=== PATIENT | female | born 1990 | race Caucasian/White ===

== ENCOUNTER → 2018-10-29 | Outpatient (CLI) | payer BC | END | disposition home or self-care (01) | LOC: CFH 07:22 | PROVIDERS: ATTEND Obstetrics & Gynecology | DX: R29.818 Other symptoms and signs involving the nervous system (principal); Z86.73 Personal history of transient ischemic attack (TIA), and cerebral infarction without residual deficits | CPT/HCPCS: 70551 ==

== ENCOUNTER 2019-01-17 09:27 | Outpatient (CLI) | payer BC ==
[~2019-01-17] VITALS: Ht 160 cm; Wt 83.6 kg
[2019-01-17 09:55] VITALS: BP 115/75
[2019-01-17 10:21] LABS: BASOPHILS # (AUTO) 0.04 x10^3/uL (0-0.1); BASOPHILS % (AUTO) 0 % (0-1); EOSINOPHILS # (AUTO) 0.19 x10^3/uL (0-0.4); EOSINOPHILS % (AUTO) 2 % (1-7); LYMPHOCYTES # (AUTO) 2.14 x10^3/uL (1-3.4); LYMPHOCYTES % (AUTO) 19 % (22-44); MD NO; MEAN CORPUSCULAR HGB CONC 32.9 g/dL (32.4-35.8); MEAN CORPUSCULAR VOLUME 94.2 fL (80-100); MEAN PLATELET VOLUME 7.1 fL (7.4-10.4); MONOCYTES # (AUTO) 1.04 x10^3/uL (0.2-0.8); MONOCYTES % (AUTO) 9 % (2-9); NEUTROPHILS # (AUTO) 7.93 x10^3/uL (1.8-6.8); NEUTROPHILS % (AUTO) 70 % (42-75); PLATELET COUNT 356 x10^3/uL (130-400); RED BLOOD COUNT 4.07 x10^6/uL (3.82-5.3)
[2019-01-17 10:31] LABS: MICROSCOPIC NOT IND
[2019-01-17 10:34] LABS: ALANINE AMINOTRANSFERASE 19 U/L (12-78); ALBUMIN 2.6 g/dL (3.4-5.0); ANION GAP 8 mmol/L (5-15); CALCIUM 8.8 mg/dL (8.5-10.1); CHLORIDE 108 mmol/L (98-107); CREATININE 0.49 mg/dL (0.55-1.02)
[2019-01-17 10:37] LABS: ALKALINE PHOSPHATASE 169 U/L (45-117); BILIRUBIN,TOTAL 0.7 mg/dL (0.2-1.0); TOTAL PROTEIN 6.7 g/dL (6.4-8.2)
[2019-01-17] MEDS ORDERED: NPH,100V SQ-INSULIN (10:46)
[2019-01-17] MEDS ORDERED: PREN-3 PO (10:47)
[2019-01-17 10:56] LABS: CREATININE,URINE RANDOM 25.2 mg/dL
== END 2019-01-17 11:50 | disposition home or self-care (01) ==
LOC: LDOP 09:27
PROVIDERS: ATTEND Obstetrics & Gynecology
DX: Z34.83 Encounter for supervision of other normal pregnancy, third trimester (principal); Z3A.37 37 weeks gestation of pregnancy
CPT/HCPCS: 36415; 59025; 76819; 80053; 81003; 82570; 84156; 84550; 85025; 99211; G0463

== ENCOUNTER 2019-01-20 16:01 | Outpatient (CLI) | payer BC ==
[~2019-01-20] VITALS: Ht 160 cm; Wt 84.0 kg
[~2019-01-20 16:01] MED LIST: NPH,100V SQ-INSULIN; PREN-3 PO
== END 2019-01-20 17:05 | disposition home or self-care (01) ==
LOC: LDOP 16:01
PROVIDERS: ATTEND Obstetrics & Gynecology
DX: Z3A.42 42 weeks gestation of pregnancy (principal)
CPT/HCPCS: 59025; 99211; G0463

== ENCOUNTER 2019-01-25 11:29 | Inpatient (IN) | payer BC ==
[~2019-01-25] VITALS: Ht 160 cm; Wt 84.0 kg
[2019-01-25] MEDS ORDERED: ONDANSETRON 2MG/ML, 2ML IVPush PRN (11:30)
[2019-01-25] MEDS ORDERED: OXYTOCIN 30U/ 0.9% NaCL 500ML 500 ML IV ONE (11:30)
[2019-01-25] MEDS ORDERED: FENTANYL PF 100 MCG/2ML IV PRN (11:30)
[2019-01-25] MEDS ORDERED: PENICILLIN GK 5,000,000 UNITS in DEXTROSE 5% 100 ML IVPB ONE (11:30)
[2019-01-25] MEDS ORDERED: CALCIUM CARBONATE 500 MG TAB.CHEW PO PRN (11:30)
[2019-01-25] MEDS ORDERED: TERBUTALINE 1 MG/ML, 1ML IVPush PRN (11:30)
[2019-01-25] MEDS ORDERED: OXYTOCIN 30U/ 0.9% NaCL 500ML 500 ML IV PRN (11:30)
[2019-01-25] MEDS ORDERED: OXYTOCIN 30U/ 0.9% NaCL 500ML 500 ML ONE (11:37)
[2019-01-25] MEDS ORDERED: NEWBORN KIT ONE (11:37)
[2019-01-25] MEDS ORDERED: MISOPROSTOL 200 MCG TABLET ONE (11:37)
[2019-01-25] MEDS ORDERED: LIDOCAINE 1%, 20ML ONE (11:37)
[2019-01-25] MEDS: LACTATED RINGERS 1,000 ML IV SCH (11:42)
[2019-01-25] MEDS ORDERED: MISOPROSTOL 25 MCG TABLET ONE ×2 (11:45→16:31)
[2019-01-25 11:54] LABS: BASOPHILS # (AUTO) 0.03 x10^3/uL (0-0.1); BASOPHILS % (AUTO) 0 % (0-1); EOSINOPHILS # (AUTO) 0.21 x10^3/uL (0-0.4); EOSINOPHILS % (AUTO) 2 % (1-7); LYMPHOCYTES % (AUTO) 18 % (22-44); MD NO; MEAN CORPUSCULAR HEMOGLOBIN 30.7 pg (27.0-34.8); MEAN CORPUSCULAR HGB CONC 33.3 g/dL (32.4-35.8); MEAN CORPUSCULAR VOLUME 92.2 fL (80-100); MEAN PLATELET VOLUME 7.1 fL (7.4-10.4); MONOCYTES # (AUTO) 0.91 x10^3/uL (0.2-0.8); MONOCYTES % (AUTO) 7 % (2-9); NEUTROPHILS # (AUTO) 8.92 x10^3/uL (1.8-6.8); NEUTROPHILS % (AUTO) 73 % (42-75); PLATELET COUNT 356 x10^3/uL (130-400); RED BLOOD COUNT 4.22 x10^6/uL (3.82-5.3)
[2019-01-25] MEDS: MISOPROSTOL 25 MCG TABLET VG PRN ×2 (12:12→16:53)
[2019-01-25] MEDS ORDERED: FENTANYL/BUPIV./NS/PF 250 ML EPIDCONT SCH (13:51)
[2019-01-25] MEDS ORDERED: LACTATED RINGERS 1,000 ML IVBOLUS PRN (14:00)
[2019-01-25] MEDS ORDERED: FENTANYL PF 500 MCG, BUPIVACAINE/PF 0.5%, 30ML 62.5 ML in SODIUM CHLORIDE 0.9% 177.5 ML EPIDCONT SCH (14:00)
[2019-01-25] MEDS ORDERED: EPHEDRINE 50 MG/ML, 1ML IVPush PRN (14:00)
[2019-01-25] MEDS: PENICILLIN GK 2,500,000 UNITS in DEXTROSE 5% 100 ML IVPB SCH ×2 (16:03→19:53)
[2019-01-25] MEDS: D5%-LACTATED RINGERS 1,000 ML IV SCH (19:40)
[2019-01-25] MEDS ORDERED: FENTANYL PF 100 MCG/2ML ONE (23:38)
[2019-01-25] MEDS: FENTANYL PF 100 MCG/2ML IVPush PRN (23:43)
[2019-01-26] MEDS ORDERED: FENTANYL PF 100 MCG/2ML ONE (01:15)
[2019-01-26] MEDS: FENTANYL PF 100 MCG/2ML IVPush PRN (01:19)
[2019-01-26] MEDS: LACTATED RINGERS 1,000 ML IV SCH ×11 (02:38→19:40)
[2019-01-26] MEDS ORDERED: FENTANYL/BUPIV./NS/PF 250 ML EPIDCONT SCH (02:38)
[2019-01-26] MEDS ORDERED: LACTATED RINGERS 1,000 ML IVBOLUS PRN (03:00)
[2019-01-26] MEDS ORDERED: EPHEDRINE 50 MG/ML, 1ML IVPush PRN (03:00)
[2019-01-26] MEDS ORDERED: NALOXONE 0.4 MG/ML, 1ML IVPush PRN (03:00)
[2019-01-26] MEDS: D5%-LACTATED RINGERS 1,000 ML IV SCH ×4 (03:40→19:40)
[2019-01-26] MEDS: PENICILLIN GK 2,500,000 UNITS in DEXTROSE 5% 100 ML IVPB SCH ×6 (04:13→20:00)
[2019-01-26] MEDS ORDERED: OXYTOCIN 30U/ 0.9% NaCL 500ML 500 ML ONE (18:04)
[2019-01-26] MEDS ORDERED: OXYTOCIN 30U/ 0.9% NaCL 500ML 500 ML IV SCH (18:19)
[2019-01-26] MEDS ORDERED: HYDROcodone/APAP 5/325 TABLET PO PRN ×2 (18:30)
[2019-01-26] MEDS ORDERED: MISOPROSTOL 200 MCG TABLET PR PRN (18:30)
[2019-01-26] MEDS ORDERED: DOCUSATE 100 MG CAPSULE PO PRN (18:30)
[2019-01-26] MEDS ORDERED: OXYTOCIN 10 UNITS/ML, 1ML IM PRN (18:30)
[2019-01-26] MEDS ORDERED: ACETAMINOPHEN 325 MG TABLET PO PRN (18:30)
[2019-01-26] MEDS ORDERED: CARBOPROST TROMETHAMINE 250 MCG/ML, 1ML IM PRN (18:30)
[2019-01-26] MEDS: CEFAZOLIN PMX 1GM/50ML 50 ML IV SCH (18:30)
[2019-01-26] MEDS ORDERED: METHYLERGONOVINE 0.2 MG/ML IM PRN (18:30)
[2019-01-26] MEDS ORDERED: ONDANSETRON 2MG/ML, 2ML IV PRN (18:30)
[2019-01-26] MEDS ORDERED: DEXTROSE 40%, 37.5 GM GEL ONE (19:47)
[2019-01-26 20:50] VITALS: BP 113/77
[2019-01-27 02:20] VITALS: BP 123/80
[2019-01-27] MEDS: CEFAZOLIN PMX 1GM/50ML 50 ML IV SCH (02:30)
[2019-01-27 03:05] LABS: MEAN CORPUSCULAR HEMOGLOBIN 31.3 pg (27.0-34.8); MEAN CORPUSCULAR HGB CONC 33.4 g/dL (32.4-35.8); MEAN CORPUSCULAR VOLUME 93.8 fL (80-100); MEAN PLATELET VOLUME 7.7 fL (7.4-10.4); PLATELET COUNT 340 x10^3/uL (130-400); RED BLOOD COUNT 4.13 x10^6/uL (3.82-5.3); RED CELL DISTRIBUTION WIDTH 14.1 % (9.6-15.2)
[2019-01-27] MEDS: IBUPROFEN 600 MG TABLET PO PRN ×2 (03:16→13:24)
[2019-01-27 03:34] LABS: MD YES
[2019-01-27 03:37] LABS: BAND#(MANUAL) 1.47 x10^3/uL; BANDS%(MANUAL) 7 % (0-7); LYMPH#(MANUAL) 1.26 x10^3/uL (1-3.4); LYMPHS% (MANUAL) 6 % (22-44); MONOS#(MANUAL) 0.84 x10^3/uL (0.3-2.7); MONOS% (MANUAL) 4 % (2-9); SEG#(MANUAL) 17.43 x10^3/uL (1.8-6.8); SEGS% (MANUAL) 83 % (42-75)
[2019-01-27 03:38] LABS: <PLATELET ESTIMATE> ADEQUATE; <PLT MORPHOLOGY> NORMAL PLT MORPH; ANISOCYTOSIS 1+
[2019-01-27] MEDS: PENICILLIN GK 2,500,000 UNITS in DEXTROSE 5% 100 ML IVPB SCH ×2 (04:00)
[2019-01-27 07:30] VITALS: BP 104/65
[2019-01-27] MEDS ORDERED: PRENATAL VIT/IRON/FA 1 EACH TABLET PO SCH (09:00)
[2019-01-27 12:20] VITALS: BP 110/76
[2019-01-27 16:00] VITALS: BP 112/79
[2019-01-27 20:00] VITALS: BP 103/51
[2019-01-27] MEDS ORDERED: MEASLES,MUMPS&RUBELLA VACC/PF 0.5 ML SQ-VACC ONE ×2 (20:27→21:00)
[2019-01-28 08:45] VITALS: BP 98/63
== END 2019-01-28 10:27 | disposition home or self-care (01) | DRG 805 ==
LOC: LDIP 11:29 → 2NW 01-26 20:30
PROVIDERS: ADMIT Obstetrics & Gynecology; ATTEND Obstetrics & Gynecology
PROC: 10E0XZZ Delivery of Products of Conception, External Approach (ICD-10-PCS; principal; 2019-01-26)
PROC: 3E033VJ Introduction of Other Hormone into Peripheral Vein, Percutaneous Approach (ICD-10-PCS; 2019-01-26)
PROC: 0HQ9XZZ Repair Perineum Skin, External Approach (ICD-10-PCS; 2019-01-26)
PROC: 3E0R3BZ Introduction of Anesthetic Agent into Spinal Canal, Percutaneous Approach (ICD-10-PCS; 2019-01-26)
PROC: 00HU33Z Insertion of Infusion Device into Spinal Canal, Percutaneous Approach (ICD-10-PCS; 2019-01-26)
DX: O41.03X0 Oligohydramnios, third trimester, not applicable or unspecified (principal); O99.42 Diseases of the circulatory system complicating childbirth; Z37.0 Single live birth; O98.32 Other infections with a predominantly sexual mode of transmission complicating childbirth; Q21.0 Ventricular septal defect; O99.52 Diseases of the respiratory system complicating childbirth; O24.429 Gestational diabetes mellitus in childbirth, unspecified control; O69.81X0 Labor and delivery complicated by cord around neck, without compression, not applicable or unspecified; O70.0 First degree perineal laceration during delivery; J45.909 Unspecified asthma, uncomplicated; A59.9 Trichomoniasis, unspecified; O35.8XX0 Maternal care for other (suspected) fetal abnormality and damage, not applicable or unspecified; O40.3XX0 Polyhydramnios, third trimester, not applicable or unspecified; O76 Abnormality in fetal heart rate and rhythm complicating labor and delivery; O99.824 Streptococcus B carrier state complicating childbirth; Z3A.38 38 weeks gestation of pregnancy
CPT/HCPCS: 36415; 82803; 82962; 85025; 86850; 86900; 88305; G0378; J2540; J3010; J2590; J7050; J7120; J7121